=== PATIENT | male | born 1950 | race Caucasian/White ===

== ENCOUNTER 2019-05-02 20:30 | Outpatient (CLI) | payer MEDICARE, BC | END 2019-05-02 20:31 | disposition home or self-care (01) | LOC: SLEEPLAB 20:30 | PROVIDERS: ATTEND Internal Medicine | DX: G47.33 Obstructive sleep apnea (adult) (pediatric) (principal); G47.61 Periodic limb movement disorder | CPT/HCPCS: 95810 ==

== ENCOUNTER 2022-12-22 10:44 | Outpatient (CLI) | payer MEDICARE | END 2022-12-22 10:45 | disposition home or self-care (01) | LOC: BICMAMMO 10:44 | PROVIDERS: ATTEND Internal Medicine | DX: Z13.820 Encounter for screening for osteoporosis (principal); M85.851 Other specified disorders of bone density and structure, right thigh; Z85.46 Personal history of malignant neoplasm of prostate | CPT/HCPCS: 77080 ==